=== PATIENT | female | born 1970 | race Caucasian/White ===

== ENCOUNTER 2017-12-19 09:10 | Outpatient (CLI) | payer OTHER ==
[~2017-12-19 09:10] MED LIST: BENADRYL25 MG PO; ZYRTEC10 M3 PO
== END 2017-12-19 17:00 | disposition home or self-care (01) ==
LOC: MAMO-SONO 09:10
DX: N60.11 Diffuse cystic mastopathy of right breast (principal); N60.12 Diffuse cystic mastopathy of left breast; Z12.31 Encounter for screening mammogram for malignant neoplasm of breast

== ENCOUNTER 2019-06-19 10:33 | Outpatient (CLI) | payer OTHER | END 2019-06-19 10:43 | disposition home or self-care (01) | LOC: MAMO-SONO 10:33 | DX: Z12.31 Encounter for screening mammogram for malignant neoplasm of breast (principal); Z87.898 Personal history of other specified conditions; N60.11 Diffuse cystic mastopathy of right breast; N60.12 Diffuse cystic mastopathy of left breast ==